=== PATIENT | female | born 1970 | race Caucasian/White ===

== ENCOUNTER 2016-10-21 09:19 | Day surgery (SDC) | payer OTHER ==
[~2016-10-21] VITALS: Ht 170.2 cm; Wt 110.0 kg
[~2016-10-21 09:19] MED LIST: FLUT16SP NS; HYDR-4003 PO; OMEP20CA11 PO; ONDA-53 PO; PROM25TA14 PO
[2016-10-21] MEDS ORDERED: 0.9% Sodium Chloride 1,000 ML IV PRN (10:15)
[2016-10-21] MEDS ORDERED: Sodium Chloride LOK Flush 10 mL Syringe IV PRN (10:15)
[2016-10-21] MEDS ORDERED: fentaNYL-PF 50 mCg/mL 2 mL Inj IVPUSH PRN (10:15)
[2016-10-21 10:16] VITALS: BP 137/81; PULSE 70; O2SAT 96
[2016-10-21 11:18] VITALS: BP 128/65; PULSE 67; RESP 16; O2SAT 100
[2016-10-21 11:28] VITALS: BP 128/72; PULSE 68; RESP 16; O2SAT 99
[2016-10-21 11:37] VITALS: BP 133/69; PULSE 64; RESP 16; O2SAT 98
--- NOTE | 2016-10-21 12:02 | ENDO ---
[address] [address] ENDOSCOPY PROCEDURE PATIENT: CHRISTIANNE WHITT : 1970 MR#: [id number] ADMIT: 10/21/2016 JOB ID: [id number] PRIMARY PROVIDER: Hussain Hernandez MD PROCEDURE: Colonoscopy with hot snare polypectomy and biopsy. INDICATIONS: This is a 45-year-old, female smoker who, starting about 10 days ago, started having colicky like pain in the left upper quadrant and upper abdominal region. She had a transient elevation in her lipase at 174. It has since normalized. LFTs are normal. CBC is unremarkable. She had a CAT scan on October 16 which revealed a mild appearance of thickening within the distal transverse and descending with some minimal areas of pericolonic inflammation. It was postulated that the thickening could be a function of incomplete distention, but given adequate distention both proximal and distal to this segment, it was concerning for the possibility of colitis. The patient, however, has not had any notable diarrhea. She has a slight change in the color of her stool of late. Typically, she does not have constipation and has a regular formed brown bowel movement. She has not had any prior colonoscopy. From an abdominal surgery standpoint, she has had a hysterectomy. No other operations that she reported. She continues to experience a 7/10 level of discomfort, mostly on the left side, left lower quadrant and even left upper quadrant. Endoscopic interrogation is thus pursued. The patient has had some dry heaving but no shyam emesis. She has been a little nauseated. There have not been any overt fevers. EQUIPMENT: [facility]. SEDATION: 4 mg Versed, 100 mcg fentanyl. COMPLICATIONS: None identified. BOWEL PREP: Excellent distally with the two enemas. We were able to get all the way to cecum with only a minimal amount of retained semi liquid stool debris. PROCEDURE INFORMATION: After the risks and benefits were explained, written and verbal informed consent was obtained. The patient was brought into the endoscopy suite and placed into the left lateral decubitus position. Sedation was achieved as above. A digital rectal examination accomplished. Moderate internal, external, nonbleeding, nonthrombosed hemorrhoids were noted. The scope was introduced into the rectum and advanced under direct visualization to the level of the cecum, as identified by the appendiceal orifice and ileocecal valve. The terminal ileum was briefly accessed. The scope was then slowly withdrawn to carefully examine the mucosa for any defects or lesions. Multiple direct views were made through the dentate line for exclusion of pathology. The colon was decompressed, the scope removed the patient who tolerated the procedure well. FINDINGS: No evidence of proctitis. There was no evidence of colitis throughout. We paid extra attention to the region of concern from CT scan and there was no suggestion of any ischemic colitis or otherwise at this location. I took a small biopsy from the splenic flexure for histologic confirmation of normality here. In the ascending colon, there was an approximately 8 mm polyp that was removed with hot snare. I could not aspirate this through the accessory channel of the scope prior to sectioning it within the lumen of the bowel. We then were able to retrieve it. The terminal ileum was interrogated and appeared quite normal. Multiple photographs were taken throughout for the electronic record. ENDOSCOPIC DIAGNOSES: 1. No evidence of proctocolitis. 2. Moderate internal hemorrhoids. 3. Colon polyp. RECOMMENDATIONS: 1. Await histopathology. 2. Continue supportive care. 3. If symptoms persist, then further evaluation with upper endoscopy and even possibly capsule endoscopy may be appropriate.
--- NOTE | 2016-10-23 10:52 | PATH ---
SURGICAL PATHOLOGY Attending Physician:Tali Olivas CASE STATUS: Signed Out PATIENT NAME: CHRISTIANNE WHITT PID: [id number] : 1970 DATE COLLECTED:10/21/2016 15:47 SPECIMEN: 1: Colon, Biopsy 2: Colon, Biopsy CLINICAL HISTORY: 1).ASCENDING COLON POLYP X1 2).SPLENIC FLEXURE BIOPSY FINAL DIAGNOSIS: 1.ASCENDING COLON POLYP: SESSILE SERRATED ADENOMA. 2.SPLENIC FLEXURE BIOPSY: COLONIC MUCOSA WITH NO DIAGNOSTIC ALTERATIONS. Negative for inflammation, dysplasia and malignancy. ICD10 CODE D12.2 GROSS DESCRIPTION: The specimen is received in two formalin filled containers labeled with the patient's name. 1). The specimen is sublabeled "ascending colon polyp x1" and consists of 2 portions of tissue which aggregate to 0.6 0.5 x 0.5 CM. The specimen is entirely submitted in cassette 1A. 2). The specimen is sublabeled "splenic flexure" and consists of a 0.2 x 0.1 x 0.1 CM portion of tissue which is entirely submitted in cassette 2A. 10/21/2016 [facility] MICRO DESCRIPTION: See diagnosis. ICD-9 CODES: CPT CODES: 1: 91671 2: 06608 Electronically Signed Out Tricia Morrison MD [facility] [address], [place] [address] Technical component performed at [facility], [facility] [address], [place], [address]
== END 2016-10-21 23:59 | disposition home or self-care (01) ==
LOC: END 09:19
PROVIDERS: ATTEND Internal Medicine Gastroenterology
DX: D12.2 Benign neoplasm of ascending colon (principal); K64.8 Other hemorrhoids; R10.12 Left upper quadrant pain; K85.00 Idiopathic acute pancreatitis without necrosis or infection; F17.210 Nicotine dependence, cigarettes, uncomplicated
CPT/HCPCS: 45380; 45385; 99153; G0500; J2250; J3010; J7030

== ENCOUNTER 2016-10-24 13:05 | Day surgery (SDC) | payer OTHER ==
[~2016-10-24] VITALS: Ht 172.7 cm; Wt 106.6 kg
[2016-10-24 13:21] VITALS: BP 137/83; PULSE 80; RESP 16; O2SAT 97
[2016-10-24] MEDS ORDERED: 0.9% Sodium Chloride 1,000 ML IV PRN (14:43)
[2016-10-24] MEDS ORDERED: Sodium Chloride LOK Flush 10 mL Syringe IV PRN (14:45)
[2016-10-24] MEDS ORDERED: fentaNYL-PF 50 mCg/mL 2 mL Inj IVPUSH PRN (14:45)
[2016-10-24 15:25] VITALS: BP 109/62; PULSE 87; RESP 14; O2SAT 96
[2016-10-24 15:36] VITALS: BP 118/59; PULSE 80; RESP 14; O2SAT 97
[2016-10-24 15:46] VITALS: BP 105/83; PULSE 74; RESP 14; O2SAT 97
--- NOTE | 2016-10-24 15:47 | ENDO ---
[address] [address] ENDOSCOPY PROCEDURE PATIENT: CHRISTIANNE WHITT : 1970 MR#: [id number] ADMIT: 10/24/2016 JOB ID: [id number] DATE: 10/24/2016 PRIMARY PROVIDER: Hussain Hernandez MD PROCEDURE: Esophagogastroduodenoscopy with biopsies. INDICATIONS: A 46-year-old female with subacute onset of epigastric to left upper quadrant pain, in essence colicky for the most part, but somewhat relieved with a GI cocktail. CT scan revealed some thickening around the splenic flexure but there was no significant pathology appreciated at colonoscopy. EGD is thus pursued for persistent symptoms now additionally including an element of dysphagia and emesis. EQUIPMENT: [facility] H 180 J. SEDATION: 1. 6 mg Versed. 2. 150 mcg fentanyl. 3. Lidocaine swish and swallow. COMPLICATIONS: None identified. PROCEDURAL INFORMATION: After the risks and benefits were explained, written and verbal informed consent was obtained. The patient was brought into the endoscopy suite and placed into the left lateral decubitus position. Sedation was achieved as above. The scope introduced into the mouth through the bite block, and advanced to the second portion of the duodenum. The scope was slowly withdrawn to carefully examine the mucosa for any defects or lesions. Retroflexed views were accomplished in the stomach. The stomach was decompressed. The scope was removed the patient who tolerated the procedure well. FINDINGS: 1. Duodenum: No significant mucosal pathology identified from the bulb through to the second portion. 2. Stomach: No outlet obstruction. No ulcers. No mass lesions. The patient had scattered erosive changes all throughout the antrum and an otherwise mild diffuse gastropathy. Retroflexed views of the LES were unremarkable apart from a small sliding hiatal hernia. Random biopsy was taken for PyloriTek assay for exclusion of H pylori. A separate set of biopsies were taken for histopathology (from down in the antrum involving the eroded mucosa). 3. Esophagus: The squamocolumnar junction correlated with the top of the gastric folds. The GEJ was at about 41 cm from the incisors. The patient had evidence of very subtle LA grade A erosive esophagitis. No other significant esophageal pathology throughout. ENDOSCOPIC DIAGNOSES: 1. Hiatal hernia, small. 2. LA grade A erosive esophagitis. 3. Erosive gastropathy. RECOMMENDATIONS: 1. Await PyloriTek assay. This should be available in the next approximately 45 minutes. If positive, the patient will be commenced on triple therapy. 2. Await histopathology. 3. For the time being continue proton pump inhibitor therapy plus or minus Gaviscon through the weekend. Advance diet as tolerated. 4. Depending on progress through the weekend, we may need to consider repeating laboratory assessment and/or further abdominal imaging. I would repeat the lipase and again consider MRCP. Alternatively if the patient has more in the way of nausea or increasing emesis, then small bowel imaging with a small bowel follow through would be appropriate.
--- NOTE | 2016-10-28 12:43 | PATH ---
SURGICAL PATHOLOGY Attending Physician:Tali Olivas CASE STATUS: Signed Out PATIENT NAME: CHRISTIANNE WHITT PID: [id number] : 1970 DATE COLLECTED:10/24/2016 00:00 SPECIMEN: Gastric, Biopsy CLINICAL HISTORY: 1). GASTRIC BIOPSIES FINAL DIAGNOSIS: 1.GASTRIC BIOPSIES: GASTRIC ANTRUM WITH MILD CHRONIC GASTRITIS. Negative for Helicobacter organisms. Negative for intestinal metaplasia. No evidence of dysplasia or malignancy. ICD10 code K29.70 GROSS DESCRIPTION: The specimen is received in one formalin filled container labeled with the patient's name, sublabeled "gastric" and consists of 2 portions of tissue which aggregate to 0.2 x 0.2 x 0.2 CM. The specimen is entirely submitted in one cassette. 10/25/2016 [facility] MICRO DESCRIPTION: See diagnosis. ICD-9 CODES: CPT CODES: 1: 19883 Electronically Signed Out Isra Schaefer MD [facility] [address] [facility], [place] [address] Technical component performed at [facility], [facility] [address], [place], [address]
== END 2016-10-24 23:59 | disposition home or self-care (01) ==
LOC: END 13:05
PROVIDERS: ATTEND Internal Medicine Gastroenterology
DX: K29.50 Unspecified chronic gastritis without bleeding (principal); R11.2 Nausea with vomiting, unspecified
CPT/HCPCS: 43239; G0500; J2250; J3010; J7030

== ENCOUNTER 2017-04-26 08:51 | Emergency (ER) | payer OTHER ==
[~2017-04-26] VITALS: Ht 172.7 cm; Wt 100.0 kg
[~2017-04-26 08:51] MED LIST changes: -OMEP20CA11 PO; -ONDA-53 PO
[2017-04-26 08:53] VITALS: BP 142/101; PULSE 87; RESP 20; O2SAT 99
--- NOTE | 2017-04-26 09:13 | ED.REPORT ---
HPI-Abd Pain F 40 and Over Date of Service Apr 26, 2017 ED Provider: Jona Dallas DO Patient is a 46 year old female with a previous diagnosis of paraesophageal hiatal hernia and erosion by Dr. Neumann who presents to the ED complaining of increasing abdominal pain over the last few weeks. Her pain is worse when she eats and she reports that it feels like acid reflux. Associated symptoms include coughing over the last 3-4 weeks. She denies SOB, chest pain, constipation, diarrhea, vomiting, hematochezia, fever, chills, or any other symptoms. She did not take her promethazine today. She take Omeprazole once daily and has been using Mylanta. Nursing Notes Stated Complaint: ABDOMINAL PAIN/NAUSEA Chief Complaint: Female Abdominal Pain Nursing Notes Reviewed: Yes Allergies: Coded Allergies: Sulfa (Sulfonamide Antibiotics) (Verified Allergy, Unknown, 06/18/15) TAPE (Verified Allergy, Unknown, 10/20/16) Scheduled Famotidine (Pepcid) 40 Mg Tablet 40 MG PO BID Fluticasone Propionate (Fluticasone Propionate Nasal) 16 Gm Gilmore.susp 2 SPRAY NS BID Pantoprazole DR (Protonix) 40 Mg Tablet 40 MG PO BID bid for 2 weeks, then daily Scheduled PRN Promethazine (Promethazine) 25 Mg Tablet 25 MG PO Q6H PRN PRN For Nausea General Time Seen by MD: 09:01 Chief Complaint Abdominal pain Hx Obtained From: Patient Arrived By: Walk-in Sudden in Onset?: No Onset Occurred: More than a week ago... (3 weeks) Symptom Duration: Since onset Progression since Onset: Gradually worsening Quality: Painful Severity: Current: Moderate Severity: Maximum: Moderate Exacerbated by: Eating Recent Healthcare: Prior workup Similar Sx Previous: Yes Risk Factors )( AAA Risk Stratification Hypertension Smoking Past Medical History Past Medical History Pericarditis (year unknown, possibly 2010) pancreatitis arthritis paraesophageal hiatal hernia and erosion MRSA Past Surgical History bladder suspension Sinus surg Ovarian cyst removal R knee repair Reports: Hysterectomy, Tonsillectomy Family History noncontributory Smoking History Current Every Day Smoker Social History Alcohol Use: "Social" Drug Use: THC Other Social History: Local resident Ambulatory Status Independent Review of Systems Constitutional: Denies: Chills, Fever Respiratory: Reports: Non-productive cough, Denies: Shortness of breath Cardiovascular: Denies: Chest pain GI: Reports: Abdominal pain, Denies: Constipation, Diarrhea, Hematochezia, Vomiting Complete sys rev & neg: except as marked. Physical Exam Vital Signs Vital Signs (First) Date Time Temp Pulse Resp B/P Pulse Ox O2 Delivery O2 Flow Rate FiO2 04/26/17 08:53 36.1 87 20 142/101 99 Room Air Initial VS: Reviewed, Vital signs abnormal Head / Eyes: Atraumatic, Normocephalic Neck: Supple, Full range of motion Skin: Warm, Dry Neurologic: Alert, Oriented, Nonfocal Psychiatric: Mood/affect normal, Behavior normal, Normal thought content General/Constitutional: Awake, Alert Respiratory / Chest: Atraumatic, Breath sounds NL, Breath sounds = bilat, No respiratory distress Cardiovascular: Heart rate NL, Regular rhythm, Heart sounds NL Abdomen: Atraumatic, Soft Tenderness/Guarding/Rebound: Positive: Tender epigastric Back: Atraumatic Interpretation & Diagnostics Lab Results Interpretation Result Diagram: 04/26/17 1000 04/26/17 1000 Test 04/26/17 10:00 White Blood Count 10.5th/mm3 (3.8-10.1) Red Blood Count 4.35mil/mm3 (3.90-5.20) Hemoglobin 14.0g/dL (12.0-15.6) Hematocrit 41.0% (35.0-46.0) Mean Corpuscular Volume 94.3fL (81-100) Mean Corpuscular Hemoglobin 32.2pg (27.0-35.0) Mean Corpuscular Hemoglobin Concent 34.1% (32.0-37.0) Red Cell Distribution Width 12.1% (12.3-15.4) Platelet Count 306bil/L (150-400) Neutrophils (%) (Auto) 66.0% (40-74) Lymphocytes (%) (Auto) 27.1% (14-46) Monocytes (%) (Auto) 4.2% (4-12) Eosinophils (%) (Auto) 1.8% (0-5) Basophils (%) (Auto) 0.7% (0-3) Sodium Level 139mEq/L (134-144) Potassium Level 4.3mEq/L (3.5-5.2) Chloride Level 101mEq/L (97-108) Carbon Dioxide Level 23mmol/L (18-29) Blood Urea Nitrogen 10mg/dL (6-24) Creatinine 0.57mg/dL (0.57-1.00) Estimat Glomerular Filtration Rate 164mL/min (>59) Glucose Level 106mg/dL (60-99) Calcium Level 9.5mg/dL (8.5-10.1) Magnesium Level 1.9mg/dL (1.6-2.6) Total Bilirubin 0.2mg/dL (0.0-1.2) Aspartate Amino Transf (AST/SGOT) 21U/L (0-50) Alanine Aminotransferase (ALT/SGPT) 26U/L (0-32) Alkaline Phosphatase 83U/L (25-150) Total Protein 7.5g/dL (6.4-8.4) Albumin 4.5g/dL (3.4-5.0) Lipase 18U/L (13-60) Re-Eval/Medical Decision Re-Evaluation/Progress : Time of Eval: 11:36 Re-Evaluation/Progress Note: Discussed plan for discharge. Patient understands and agrees with plan. All questions addressed at this time. Counseled Regarding: Diagnosis, Lab results, Need for follow-up, When/why to return to ED Discharge & Departure Primary Impression: Abdominal Pain, Epigastric Disposition: Home Discharge Condition All VS Reviewed: Yes Condition: Stable Patient Instructions: Gastritis (ED) Additional Instructions: Your symptoms are most likely due to your hiatal hernia. Decker that you should increase your medication management and follow a bland diet and stop smoking and drinking in order to improve this. Stop omeprazole and begin taking Protonix twice daily. Also begin taking Pepcid twice daily. Also use [id number] liquid antacids as directed for symptoms. Avoid spicy foods or greasy foods; alcohol, and cigarettes will worsen your symptoms as well. Call your GI doctor for the next available appointment for reevaluation and your regular doctor as well. Return to the ER as needed if worse. Referrals: Hussain Hernandez MD (PCP) Scribe Attestation Portions of this note were transcribed by Jevon Chandler. I, Dr. Dallas personally performed the history, physical exam and medical decision-making; I reviewed and confirmed the accuracy of the information in the transcribed note. Signed: Sam Ang, 04/26/17 copies to: Hussain Hernandez MD, Timothy S DO Apr 26, 2017 09:13 JEVON CHANDLER Apr 26, 2017 09:20 Jona Dallas DO Apr 26, 2017 09:13 JEVON CHANDLER Apr 26, 2017 09:20
[2017-04-26] MEDS ORDERED: LidocaineVisc 2%:Antacid 1:1 10 mL Syringe PO ONE (09:20)
[2017-04-26] MEDS ORDERED: Pantoprazole 40 mg ER24 Tablet PO ONE (09:20)
[2017-04-26 10:53] LABS: Magnesium 1.9 mg/dL (1.6-2.6)
[2017-04-26 10:57] LABS: BASOPHILS % (AUTO) 0.7 % (0-3); EOSINOPHILS % (AUTO) 1.8 % (0-5); MONOCYTES % (AUTO) 4.2 % (4-12); Mean Corpuscular Hemoglobin 32.2 pg (27.0-35.0); Mean Corpuscular Volume 94.3 fL (81-100); Platelet Count 306 bil/L (150-400)
[2017-04-26] MEDS ORDERED: FAMO40TA72 PO (11:35)
[2017-04-26] MEDS ORDERED: PANT40TA2 PO (11:35)
[2017-04-26 12:06] VITALS: BP 120/71; PULSE 82; RESP 11; O2SAT 97
== END 2017-04-26 12:08 | disposition home or self-care (01) ==
LOC: SED 08:51
DX: R10.13 Epigastric pain (principal); I10 Essential (primary) hypertension; F17.200 Nicotine dependence, unspecified, uncomplicated; Z86.14 Personal history of Methicillin resistant Staphylococcus aureus infection; Z90.710 Acquired absence of both cervix and uterus; Z88.2 Allergy status to sulfonamides
CPT/HCPCS: 36415; 80053; 83690; 83735; 85025; 99283; Q0169